=== PATIENT | male | born 1970 | race Caucasian/White ===

== ENCOUNTER 2023-09-24 22:18 | Inpatient (IN) | payer OTHER ==
[~2023-09-24] VITALS: Ht 172.7 cm; Wt 93.9 kg
[2023-09-24 22:32] VITALS: BP_SYST 124; PULSE 129; RESP 20; TEMP 98.9; O2SAT 97
[2023-09-24 23:59] LABS: ERYTHROCYTE SEDIMENTATION RATE 10 MM/HR (0-15)
[2023-09-25 00:07] LABS: BASOPHILS # (AUTO) 0.1 K/uL (0.0-0.2); BASOPHILS % (AUTO) 0.9 % (0.0-2.0); EOSINOPHILS % (AUTO) 0.1 % (0.0-4.0); HEMATOCRIT 39.1 % (36-54); HEMOGLOBIN 13.4 g/dL (14.0-18.0); LYMPHOCYTES # (AUTO) 0.7 K/uL (1.0-5.5); LYMPHOCYTES % (AUTO) 5.8 % (20.5-51.5); MEAN CORPUSCULAR HEMOGLOBIN 28 pg (27-31); MEAN CORPUSCULAR HGB CONC 34 % (32-36); MEAN CORPUSCULAR VOLUME 82 fL (79.0-98.0); MONOCYTES # (AUTO) 0.7 K/uL (0.0-1.0); MONOCYTES % (AUTO) 5.6 % (1.7-9.3); NEUTROPHILS # (AUTO) 10.9 K/uL (1.8-7.7); NEUTROPHILS % (AUTO) 87.6 % (40.0-70.0); PLATELET COUNT (AUTO) 179 K/uL (130-430); RED BLOOD CELL COUNT(AUTO) 4.76 MIL/uL (4.2-6.2); RED CELL DISTRIBUTION WIDTH 16.3 % (9.0-15.0); WHITE BLOOD COUNT (AUTO) 12.4 K/uL (4.8-10.8)
[2023-09-25 00:30] LABS: INR 1.1 (0.80-1.20)
[2023-09-25 00:41] LABS: BILIRUBIN,URINE NEGATIVE (NEGATIVE); CLARITY/URINE CLEAR (CLEAR); COLOR,URINE YELLOW (YELLOW); GLUCOSE,URINE 3+ (NEGATIVE); KETONES,URINE 2+ (NEGATIVE); LEUKOCYTE ESTERASE ,URINE NEGATIVE (NEGATIVE); NITRITE, URINE NEGATIVE (NEGATIVE); PROTEIN URINE NEGATIVE (NEGATIVE); UROBILINOGEN,URINE 0.2 (0.2-1.0)
[2023-09-25 00:47] LABS: BLOOD, URINE NEGATIVE (NEGATIVE)
[2023-09-25 01:12] LABS: CALCIUM 8.9 mg/dL (8.4-11.0); CREATININE 1.17 mg/dL (0.55-1.30); POTASSIUM 3.5 mmol/L (3.5-5.1)
[2023-09-25] MEDS: NACL 0.9% 1,000 ML IV ONE (01:19)
[2023-09-25] MEDS ORDERED: cefTRIAXone 1 GM VIAL ONE (01:26)
[2023-09-25] MEDS: cefTRIAXone 1 GM in D5W 50 ML IV ONE (01:29)
[2023-09-25] MEDS: ACETAMINOPHEN 500 MG TABLET PO ONE (01:35)
[2023-09-25] MEDS: ACETAMINOPHEN 500 MG TABLET PO PRN (07:52)
[2023-09-25] MEDS ORDERED: HYDROcodone/ACETAMIN 10-325 MG TAB PO PRN (10:30)
[2023-09-25] MEDS ORDERED: LORazepam 2 MG/ML VIAL IVP PRN (10:30)
[2023-09-25] MEDS ORDERED: NALOXONE HCL 0.4 MG/ML AMP (NARCAN) IVP PRN ×2 (10:30)
[2023-09-25] MEDS ORDERED: ONDANSETRON HCL 4 MG/2 ML VIAL IVP PRN (10:30)
[2023-09-25] MEDS ORDERED: ACETAMINOPHEN 325 MG TABLET PO PRN (10:30)
[2023-09-25 10:40] VITALS: BP_SYST 132; PULSE 105; RESP 16; TEMP 99.5; O2SAT 97
[2023-09-25] MEDS: INSULIN REGULAR, HUMAN 100 UNITS/ML, 3 ML VIAL (humuLIN R) SUBCUT PRN (11:38)
[2023-09-25 12:42] VITALS: BP_SYST 142; PULSE 92; RESP 18; TEMP 99.2; O2SAT 98
[2023-09-25] MEDS: VANCOMYCIN HCL 1.25 GM/NS 250 ML IV SCH (13:03)
[2023-09-25] MEDS: ACETAMINOPHEN 325 MG TABLET PO PRN (13:03)
[2023-09-25] MEDS: NORMAL SALINE 5 ML DISP.SYRIN IVF SCH (14:00)
[2023-09-25 16:42] VITALS: BP_SYST 138; PULSE 94; RESP 17; TEMP 99.3; O2SAT 99
[2023-09-25 20:00] VITALS: O2SAT 99
[2023-09-25 20:51] VITALS: BP_SYST 144; PULSE 98; RESP 20; TEMP 96.8; O2SAT 97
[2023-09-25] MEDS ORDERED: cefTRIAXone 1 GM IVPB PREMIX 50 ML IV SCH (21:00)
[2023-09-25] MEDS: CEFEPIME 2 GM in D5W 100 ML IV SCH (21:04)
[2023-09-26 02:15] VITALS: RESP 20; TEMP 96.7
[2023-09-26 05:32] LABS: BASOPHILS # (AUTO) 0.1 K/uL (0.0-0.2); BASOPHILS % (AUTO) 0.5 % (0.0-2.0); EOSINOPHILS % (AUTO) 0.5 % (0.0-4.0); HEMATOCRIT 36.4 % (36-54); HEMOGLOBIN 12.6 g/dL (14.0-18.0); LYMPHOCYTES # (AUTO) 1.5 K/uL (1.0-5.5); LYMPHOCYTES % (AUTO) 14.7 % (20.5-51.5); MEAN CORPUSCULAR HEMOGLOBIN 29 pg (27-31); MEAN CORPUSCULAR HGB CONC 35 % (32-36); MEAN CORPUSCULAR VOLUME 82 fL (79.0-98.0); MONOCYTES # (AUTO) 1.3 K/uL (0.0-1.0); NEUTROPHILS # (AUTO) 7.3 K/uL (1.8-7.7); NEUTROPHILS % (AUTO) 71.3 % (40.0-70.0); PLATELET COUNT (AUTO) 171 K/uL (130-430); RED BLOOD CELL COUNT(AUTO) 4.42 MIL/uL (4.2-6.2); RED CELL DISTRIBUTION WIDTH 16.7 % (9.0-15.0); WHITE BLOOD COUNT (AUTO) 10.3 K/uL (4.8-10.8)
[2023-09-26 06:01] LABS: ALBUMIN 2.9 g/dL (3.4-4.8); CALCIUM 8.2 mg/dL (8.4-11.0); CREATININE 0.88 mg/dL (0.55-1.30); POTASSIUM 3.8 mmol/L (3.5-5.1); TOTAL BILIRUBIN 0.9 mg/dL (0.0-1.0)
[2023-09-26 08:00] VITALS: BP_SYST 127; PULSE 98; RESP 16; TEMP 98.2; O2SAT 97
[2023-09-26] MEDS ORDERED: GADOBENATE DIMEGLUMINE 529 MG/ML, 5 ML VIAL IV ONE (08:09)
[2023-09-26 12:56] VITALS: BP_SYST 132; PULSE 95; RESP 18; TEMP 97.2; O2SAT 97
[2023-09-26 16:49] VITALS: BP_SYST 130; PULSE 96; RESP 17; TEMP 98; O2SAT 98
[2023-09-26 19:31] VITALS: BP_SYST 132; PULSE 93; RESP 18; TEMP 97.7; O2SAT 97
[2023-09-27 00:33] VITALS: BP_SYST 129; PULSE 91; RESP 19; TEMP 98.6; O2SAT 98
[2023-09-27 06:49] LABS: CALCIUM 8.7 mg/dL (8.4-11.0); CREATININE 0.82 mg/dL (0.55-1.30); POTASSIUM 3.8 mmol/L (3.5-5.1); VANCOMYCIN,TROUGH 16.3 ug/mL (10.0-20.0)
[2023-09-27 06:50] LABS: BASOPHILS # (AUTO) 0.1 K/uL (0.0-0.2); BASOPHILS % (AUTO) 0.5 % (0.0-2.0); EOSINOPHILS # (AUTO) 0.2 K/uL (0.0-0.4); EOSINOPHILS % (AUTO) 1.9 % (0.0-4.0); HEMATOCRIT 35.3 % (36-54); HEMOGLOBIN 12.1 g/dL (14.0-18.0); LYMPHOCYTES # (AUTO) 1.7 K/uL (1.0-5.5); LYMPHOCYTES % (AUTO) 17.1 % (20.5-51.5); MEAN CORPUSCULAR HEMOGLOBIN 28 pg (27-31); MEAN CORPUSCULAR HGB CONC 34 % (32-36); MEAN CORPUSCULAR VOLUME 82 fL (79.0-98.0); MONOCYTES # (AUTO) 1.4 K/uL (0.0-1.0); MONOCYTES % (AUTO) 13.5 % (1.7-9.3); NEUTROPHILS # (AUTO) 6.7 K/uL (1.8-7.7); PLATELET COUNT (AUTO) 211 K/uL (130-430); RED BLOOD CELL COUNT(AUTO) 4.29 MIL/uL (4.2-6.2); RED CELL DISTRIBUTION WIDTH 16.1 % (9.0-15.0)
[2023-09-27 08:00] VITALS: BP_SYST 145; PULSE 101; RESP 17; TEMP 99.4; O2SAT 100
[2023-09-27] MEDS: HYDROcodone/ACETAMIN 5-325 MG TAB (NORCO/ VICODIN) PO PRN (08:51)
[2023-09-27 11:13] VITALS: BP_SYST 132; PULSE 73; RESP 16; TEMP 97.3; O2SAT 99
[2023-09-27 20:00] VITALS: BP_SYST 132; PULSE 97; RESP 18; TEMP 97.5; O2SAT 99
[2023-09-28] VITALS: BP_SYST 123; PULSE 87; RESP 18; TEMP 98.5; O2SAT 97
[2023-09-28 04:00] VITALS: BP_SYST 136; PULSE 82; RESP 18; TEMP 98.2; O2SAT 97
[2023-09-28 07:18] LABS: BASOPHILS % (AUTO) 0.5 % (0.0-2.0); EOSINOPHILS # (AUTO) 0.2 K/uL (0.0-0.4); EOSINOPHILS % (AUTO) 1.8 % (0.0-4.0); HEMATOCRIT 33.1 % (36-54); HEMOGLOBIN 11.5 g/dL (14.0-18.0); LYMPHOCYTES # (AUTO) 1.8 K/uL (1.0-5.5); LYMPHOCYTES % (AUTO) 18.5 % (20.5-51.5); MEAN CORPUSCULAR HEMOGLOBIN 28 pg (27-31); MEAN CORPUSCULAR HGB CONC 35 % (32-36); MEAN CORPUSCULAR VOLUME 82 fL (79.0-98.0); MONOCYTES # (AUTO) 1.1 K/uL (0.0-1.0); MONOCYTES % (AUTO) 11.5 % (1.7-9.3); NEUTROPHILS # (AUTO) 6.6 K/uL (1.8-7.7); NEUTROPHILS % (AUTO) 67.7 % (40.0-70.0); PLATELET COUNT (AUTO) 262 K/uL (130-430); RED BLOOD CELL COUNT(AUTO) 4.06 MIL/uL (4.2-6.2); RED CELL DISTRIBUTION WIDTH 16.1 % (9.0-15.0); WHITE BLOOD COUNT (AUTO) 9.7 K/uL (4.8-10.8)
[2023-09-28 07:21] LABS: CALCIUM 7.9 mg/dL (8.4-11.0); CREATININE 0.69 mg/dL (0.55-1.30); POTASSIUM 3.6 mmol/L (3.5-5.1)
[2023-09-28 07:31] LABS: ERYTHROCYTE SEDIMENTATION RATE 27 MM/HR (0-15)
[2023-09-28 08:00] VITALS: BP_SYST 139; PULSE 90; RESP 16; TEMP 98; O2SAT 99
[2023-09-28 19:00] VITALS: BP_SYST 140; PULSE 86; RESP 16; TEMP 98.2; O2SAT 98
[2023-09-28 20:00] VITALS: BP_SYST 140; PULSE 86; RESP 16; TEMP 98.2; O2SAT 98
[2023-09-29] VITALS: BP_SYST 135; PULSE 82; RESP 16; TEMP 98.4; O2SAT 98
[2023-09-29 07:42] LABS: ALBUMIN 2.7 g/dL (3.4-4.8); CALCIUM 8.7 mg/dL (8.4-11.0); CREATININE 0.81 mg/dL (0.55-1.30); POTASSIUM 4.1 mmol/L (3.5-5.1); TOTAL BILIRUBIN 0.7 mg/dL (0.0-1.0); TOTAL PROTEIN, SERUM 6.9 g/dL (6.4-8.3)
[2023-09-29 07:43] LABS: BASOPHILS # (AUTO) 0.1 K/uL (0.0-0.2); BASOPHILS % (AUTO) 0.5 % (0.0-2.0); EOSINOPHILS # (AUTO) 0.3 K/uL (0.0-0.4); EOSINOPHILS % (AUTO) 2.7 % (0.0-4.0); HEMATOCRIT 32.6 % (36-54); HEMOGLOBIN 11.2 g/dL (14.0-18.0); MEAN CORPUSCULAR HEMOGLOBIN 28 pg (27-31); MEAN CORPUSCULAR HGB CONC 34 % (32-36); MEAN CORPUSCULAR VOLUME 82 fL (79.0-98.0); MONOCYTES # (AUTO) 1.2 K/uL (0.0-1.0); MONOCYTES % (AUTO) 11.8 % (1.7-9.3); NEUTROPHILS # (AUTO) 6.6 K/uL (1.8-7.7); PLATELET COUNT (AUTO) 292 K/uL (130-430); RED BLOOD CELL COUNT(AUTO) 3.97 MIL/uL (4.2-6.2); RED CELL DISTRIBUTION WIDTH 16.4 % (9.0-15.0); WHITE BLOOD COUNT (AUTO) 10.2 K/uL (4.8-10.8)
[2023-09-29 08:00] VITALS: BP_SYST 149; PULSE 83; RESP 16; TEMP 98; O2SAT 100
[2023-09-29 08:18] LABS: ERYTHROCYTE SEDIMENTATION RATE 45 MM/HR (0-15)
[2023-09-29 09:41] VITALS: O2SAT 100
[2023-09-29 10:58] VITALS: BP_SYST 137; PULSE 82; RESP 16; TEMP 97.9; O2SAT 97
[2023-09-29 14:59] VITALS: BP_SYST 141; PULSE 84; RESP 16; TEMP 97.5; O2SAT 96
[2023-09-29 16:36] VITALS: BP_SYST 141; PULSE 84; RESP 16; TEMP 97.5; O2SAT 96
== END 2023-09-29 16:56 | disposition home health service (06) | DRG 862 ==
LOC: SED 22:18 → SMU 09-25 02:09
PROVIDERS: ADMIT Preventive Medicine Preventive Medicine/Occupational Environmental Medicine; ATTEND Preventive Medicine Preventive Medicine/Occupational Environmental Medicine
DX: T81.40XA Infection following a procedure, unspecified, initial encounter (principal); A41.9 Sepsis, unspecified organism; E87.20 Acidosis, unspecified; M86.8X7 Other osteomyelitis, ankle and foot; E11.65 Type 2 diabetes mellitus with hyperglycemia; E11.69 Type 2 diabetes mellitus with other specified complication; Z20.822 Contact with and (suspected) exposure to COVID-19; E11.628 Type 2 diabetes mellitus with other skin complications; D72.829 Elevated white blood cell count, unspecified; L08.9 Local infection of the skin and subcutaneous tissue, unspecified; Y83.8 Other surgical procedures as the cause of abnormal reaction of the patient, or of later complication, without mention of misadventure at the time of the procedure; Z88.0 Allergy status to penicillin
CPT/HCPCS: 36415; 71045; 73720; 80048; 80053; 80202; 81001; 81003; 82550; 82948; 83605; 85025; 85610; 85651; 85730; 87040; 87070; 87081; 87086; 87186; 99285; A9577; J0692; J0696; J3370; J7060

== ENCOUNTER 2023-12-31 13:51 | Inpatient (IN) | payer OTHER ==
[~2023-12-31] VITALS: Ht 172.7 cm; Wt 94.3 kg
[~2023-12-31 13:51] MED LIST: ATOR10TA68 PO; HYDR-3927 PO; MERO1VIA23 IV; METF-379 PO; METF-381 PO
[2023-12-31 14:13] VITALS: BP_SYST 147; PULSE 108; RESP 18; TEMP 98.2; O2SAT 98
[2023-12-31 17:01] LABS: BASOPHILS # (AUTO) 0.1 K/uL (0.0-0.2); BASOPHILS % (AUTO) 0.6 % (0.0-2.0); EOSINOPHILS # (AUTO) 0.2 K/uL (0.0-0.4); EOSINOPHILS % (AUTO) 1.2 % (0.0-4.0); HEMATOCRIT 36.4 % (36-54); HEMOGLOBIN 12.4 g/dL (14.0-18.0); LYMPHOCYTES # (AUTO) 1.9 K/uL (1.0-5.5); LYMPHOCYTES % (AUTO) 13.9 % (20.5-51.5); MEAN CORPUSCULAR HEMOGLOBIN 28 pg (27-31); MEAN CORPUSCULAR HGB CONC 34 % (32-36); MEAN CORPUSCULAR VOLUME 81 fL (79.0-98.0); MONOCYTES # (AUTO) 1.1 K/uL (0.0-1.0); MONOCYTES % (AUTO) 7.7 % (1.7-9.3); NEUTROPHILS # (AUTO) 10.7 K/uL (1.8-7.7); NEUTROPHILS % (AUTO) 76.6 % (40.0-70.0); PLATELET COUNT (AUTO) 296 K/uL (130-430); RED CELL DISTRIBUTION WIDTH 14.8 % (9.0-15.0)
[2023-12-31] MEDS: NACL 0.9% 1,000 ML IV ONE (17:23)
[2023-12-31 17:33] LABS: BILIRUBIN,URINE NEGATIVE (NEGATIVE); BLOOD, URINE NEGATIVE (NEGATIVE); CLARITY/URINE CLEAR (CLEAR); COLOR,URINE YELLOW (YELLOW); GLUCOSE,URINE 3+ (NEGATIVE); KETONES,URINE TRACE (NEGATIVE); LEUKOCYTE ESTERASE ,URINE NEGATIVE (NEGATIVE); NITRITE, URINE NEGATIVE (NEGATIVE); PH,URINE 5.5 (5.0-8.0); PROTEIN URINE NEGATIVE (NEGATIVE); UROBILINOGEN,URINE 0.2 (0.2-1.0)
[2023-12-31 17:36] LABS: ALBUMIN 3.3 g/dL (3.4-4.8); BILIRUBIN,DIRECT 0.1 mg/dL (0.0-0.3); CREATININE 0.9 mg/dL (0.55-1.30); POTASSIUM 3.8 mmol/L (3.5-5.1); TOTAL BILIRUBIN 0.5 mg/dL (0.0-1.0); TOTAL PROTEIN, SERUM 7.6 g/dL (6.4-8.3)
[2023-12-31] MEDS: MEROPENEM 1 GM in NS 100 ML IV ONE (17:42)
[2023-12-31] MEDS ORDERED: SITA50TA3 PO (18:34)
[2023-12-31] MEDS ORDERED: EMPA25TA PO (18:34)
[2023-12-31] MEDS ORDERED: LORA-843 PO (18:34)
[2023-12-31 18:55] LABS: BACTERIA,URINE RARE /HPF (None Seen); MUCUS,URINE None Seen /LPF (None Seen); RBC,URINE 0-3 /HPF (0-3); WBC,URINE 0-3 /HPF (0-3)
[2023-12-31 20:00] VITALS: BP_SYST 138; PULSE 93; RESP 16; TEMP 97.7; O2SAT 98
[2023-12-31] MEDS ORDERED: NALOXONE HCL 0.4 MG/ML AMP (NARCAN) IVP PRN (21:30)
[2023-12-31] MEDS ORDERED: TEMAZEPAM 15 MG CAPSULE PO PRN (21:45)
[2023-12-31] MEDS ORDERED: ACETAMINOPHEN 650 MG SUPP.RECT RC PRN (21:45)
[2023-12-31] MEDS: HYDROcodone/ACETAMIN 10-325 MG TAB PO PRN (21:54)
[2024-01-01] VITALS: BP_SYST 135; PULSE 89; RESP 16; TEMP 97.9; O2SAT 97
[2024-01-01 07:24] LABS: BASOPHILS # (AUTO) 0.1 K/uL (0.0-0.2); BASOPHILS % (AUTO) 0.5 % (0.0-2.0); EOSINOPHILS # (AUTO) 0.3 K/uL (0.0-0.4); EOSINOPHILS % (AUTO) 2.4 % (0.0-4.0); HEMATOCRIT 37.4 % (36-54); HEMOGLOBIN 12.3 g/dL (14.0-18.0); LYMPHOCYTES # (AUTO) 2.4 K/uL (1.0-5.5); LYMPHOCYTES % (AUTO) 22.8 % (20.5-51.5); MEAN CORPUSCULAR HEMOGLOBIN 28 pg (27-31); MEAN CORPUSCULAR HGB CONC 33 % (32-36); MEAN CORPUSCULAR VOLUME 83 fL (79.0-98.0); MONOCYTES % (AUTO) 9.4 % (1.7-9.3); NEUTROPHILS # (AUTO) 6.9 K/uL (1.8-7.7); NEUTROPHILS % (AUTO) 64.9 % (40.0-70.0); PLATELET COUNT (AUTO) 285 K/uL (130-430); RED BLOOD CELL COUNT(AUTO) 4.49 MIL/uL (4.2-6.2); RED CELL DISTRIBUTION WIDTH 14.6 % (9.0-15.0); WHITE BLOOD COUNT (AUTO) 10.6 K/uL (4.8-10.8)
[2024-01-01 07:45] VITALS: BP_SYST 132; PULSE 92; RESP 15; TEMP 97.2; O2SAT 95
[2024-01-01 08:04] LABS: INR 0.9 (0.80-1.20); PROTHROMBIN TIME 9.7 SECS (9.5-12.5)
[2024-01-01] MEDS ORDERED: MEROPENEM 1 GM VIAL IV SCH (09:00)
[2024-01-01 10:00] VITALS: O2SAT 95
[2024-01-01] MEDS: ATORVASTATIN 10 MG TABLET PO SCH (10:26)
[2024-01-01] MEDS: P-EPHED SUL/LORATADINE 1 EACH TAB.SR.12H PO SCH (10:26)
[2024-01-01] MEDS: metFORMIN HCL 500 MG TABLET PO SCH (10:26)
[2024-01-01] MEDS: MEROPENEM 1 GM in NS 100 ML IV SCH (10:39)
[2024-01-01 12:32] VITALS: BP_SYST 155; PULSE 69; RESP 17; TEMP 98.9; O2SAT 100
[2024-01-01 18:34] VITALS: BP_SYST 132; PULSE 93; RESP 18; TEMP 98.2; O2SAT 98
[2024-01-01 20:00] VITALS: BP_SYST 141; PULSE 84; RESP 16; TEMP 98.3; O2SAT 97
[2024-01-01] MEDS: DOXYCYCLINE HYCLATE 100 MG TABLET PO SCH (20:48)
[2024-01-02] VITALS (7 sets, daily range): BP systolic 121–135; PULSE 81–101; RESP 16–20; TEMP 97.5–98.4; O2SAT 96–98
[2024-01-02] MEDS ORDERED: GADOBENATE DIMEGLUMINE 529 MG/ML, 5 ML VIAL IV ONE (09:54)
[2024-01-02] MEDS: NACL 0.9% 1,000 ML IV SCH (12:15)
[2024-01-02] MEDS ORDERED: HYDROmorphone 1 MG/ML INJ. CARTRIDGE IVP PRN (12:15)
[2024-01-02] MEDS ORDERED: MORPHINE 4 MG INJ. 4 MG/ML VIAL IVP PRN (12:15)
[2024-01-02] MEDS ORDERED: ONDANSETRON HCL 4 MG/2 ML VIAL IVP PRN (12:15)
[2024-01-02] MEDS ORDERED: PROPOFOL 200MG/ 20ML VIAL (DIPRIVAN) IV ONE (12:26)
[2024-01-02] MEDS ORDERED: MIDAZOLAM HCL 2 MG/2 ML VIAL (VERSED) ONE (12:26)
[2024-01-02] MEDS ORDERED: WATER FOR IRRIGATION,STERILE 1,000 ML IRRIG.SOLN IR ONE (12:26)
[2024-01-02] MEDS ORDERED: fentaNYL CITRATE/PF 100 MCG/2 ML AMP ONE (12:26)
[2024-01-02] MEDS ORDERED: NS 1000 ML IV.SOLN IV ONE (12:26)
[2024-01-02] MEDS ORDERED: DEXAMETHASONE SOD PHOSPHATE 4 MG/ML VIAL ONE (12:26)
[2024-01-02] MEDS ORDERED: SEVOFLURANE 15 MIN GAS INH ONE (12:26)
[2024-01-02] MEDS ORDERED: SUGAMMADEX SODIUM 200 MG/2 ML VIAL IV ONE (12:26)
[2024-01-02] MEDS ORDERED: LIDOCAINE 1% 10 MG/ML, 20 ML MDV ONE (12:26)
[2024-01-02] MEDS ORDERED: ONDANSETRON HCL 4 MG/2 ML VIAL ONE (12:26)
[2024-01-02] MEDS ORDERED: SUCCINYLCHOLINE CHLORIDE 20 MG/ML(QUELICIN) ONE (12:26)
[2024-01-02] MEDS ORDERED: ROCURONIUM BROMIDE 10 MG/ML (ZEMURON) ONE (12:26)
[2024-01-03 07:40] VITALS: BP_SYST 146; PULSE 94; RESP 20; TEMP 98.3; O2SAT 99
[2024-01-03 10:30] VITALS: O2SAT 99
[2024-01-03 12:00] VITALS: BP_SYST 143; PULSE 98; RESP 18; TEMP 98.3; O2SAT 98
[2024-01-03 16:00] VITALS: BP_SYST 136; PULSE 98; RESP 17; TEMP 98.6; O2SAT 99
[2024-01-03 20:00] VITALS: BP_SYST 130; PULSE 79; RESP 20; TEMP 96.9; O2SAT 98
[2024-01-03 20:15] VITALS: O2SAT 97
[2024-01-03] MEDS: ENOXAPARIN SODIUM 40 MG/0.4 ML SYRINGE SUBCUT SCH (21:00)
[2024-01-04] VITALS (7 sets, daily range): BP systolic 135–143; PULSE 84–87; RESP 15–20; TEMP 96.7–98; O2SAT 96–99
[2024-01-04 08:54] LABS: BASOPHILS # (AUTO) 0.1 K/uL (0.0-0.2); EOSINOPHILS # (AUTO) 0.2 K/uL (0.0-0.4); EOSINOPHILS % (AUTO) 2.7 % (0.0-4.0); HEMOGLOBIN 12.7 g/dL (14.0-18.0)
[2024-01-04 08:57] LABS: BASOPHILS % (AUTO) 0.7 % (0.0-2.0); HEMATOCRIT 37.8 % (36-54); LYMPHOCYTES # (AUTO) 2.6 K/uL (1.0-5.5); LYMPHOCYTES % (AUTO) 28.2 % (20.5-51.5); MEAN CORPUSCULAR HEMOGLOBIN 28 pg (27-31); MEAN CORPUSCULAR HGB CONC 34 % (32-36); MEAN CORPUSCULAR VOLUME 82 fL (79.0-98.0); MONOCYTES # (AUTO) 0.6 K/uL (0.0-1.0); MONOCYTES % (AUTO) 6.7 % (1.7-9.3); NEUTROPHILS # (AUTO) 5.7 K/uL (1.8-7.7); NEUTROPHILS % (AUTO) 61.7 % (40.0-70.0); PLATELET COUNT (AUTO) 321 K/uL (130-430); RED BLOOD CELL COUNT(AUTO) 4.61 MIL/uL (4.2-6.2); RED CELL DISTRIBUTION WIDTH 14.7 % (9.0-15.0); WHITE BLOOD COUNT (AUTO) 9.2 K/uL (4.8-10.8)
[2024-01-04 09:04] LABS: ALBUMIN 3.4 g/dL (3.4-4.8); CREATININE 0.79 mg/dL (0.55-1.30); POTASSIUM 4.5 mmol/L (3.5-5.1); TOTAL BILIRUBIN 0.4 mg/dL (0.0-1.0); TOTAL PROTEIN, SERUM 7.7 g/dL (6.4-8.3)
[2024-01-05 05:04] VITALS: RESP 20; TEMP 98; O2SAT 96
[2024-01-05 10:30] VITALS: O2SAT 98
[2024-01-05 13:05] VITALS: BP_SYST 126; PULSE 93; RESP 18; TEMP 98.2; O2SAT 95
[2024-01-05 15:16] VITALS: BP_SYST 141; PULSE 88; RESP 18; TEMP 97.9; O2SAT 100
[2024-01-05 22:00] VITALS: O2SAT 98
[2024-01-06 00:56] VITALS: BP_SYST 137; PULSE 85; RESP 20; TEMP 98.2; O2SAT 98
[2024-01-06 08:05] VITALS: BP_SYST 133; PULSE 79; RESP 18; TEMP 98.4; O2SAT 99
[2024-01-06 10:00] VITALS: O2SAT 96
[2024-01-06 12:43] VITALS: BP_SYST 140; PULSE 93; RESP 16; TEMP 97.8; O2SAT 100
[2024-01-06] MEDS ORDERED: ROCI2 IV (13:40)
[2024-01-06] MEDS ORDERED: DOXY-244 PO (13:42)
[2024-01-06 14:29] VITALS: BP_SYST 143; PULSE 93; RESP 18; TEMP 98.2
[2024-01-06] MEDS ORDERED: HYDR-3927 PO (16:41)
== END 2024-01-06 15:59 | disposition home health service (06) | DRG 629 ==
LOC: SED 13:51 → SMU 18:42
PROVIDERS: ADMIT Internal Medicine; ATTEND Internal Medicine
PROC: 0QBN0ZZ Excision of Right Metatarsal, Open Approach (ICD-10-PCS; principal; 2024-01-02 12:28)
DX: E11.69 Type 2 diabetes mellitus with other specified complication (principal); E44.1 Mild protein-calorie malnutrition; M86.8X7 Other osteomyelitis, ankle and foot; L02.611 Cutaneous abscess of right foot; L03.115 Cellulitis of right lower limb; L97.519 Non-pressure chronic ulcer of other part of right foot with unspecified severity; E11.621 Type 2 diabetes mellitus with foot ulcer; E11.40 Type 2 diabetes mellitus with diabetic neuropathy, unspecified; F41.9 Anxiety disorder, unspecified; Z68.31 Body mass index [BMI] 31.0-31.9, adult; Z79.84 Long term (current) use of oral hypoglycemic drugs; Z79.899 Other long term (current) drug therapy; Z88.0 Allergy status to penicillin
CPT/HCPCS: 36415; 71045; 73720; 80048; 80053; 80076; 81000; 81001; 81015; 82948; 83037; 83605; 85025; 85610; 85730; 87040; 87070; 87075; 87081; 87086; 88304; 88311; 93005; 96365; 99285; A9577; J0330; J0696; J1100; J1650; J2001; J2185; J2405; J2704; J3010; J3465; J3490; J7030; J7060